=== PATIENT | female | born 1965 | race Caucasian/White ===

== ENCOUNTER → 2017-01-13 | Outpatient (CLI) | payer OTHER ==
--- NOTE | 2017-01-15 11:12 | MM ---
Reason for exam: screening (asymptomatic). Last mammogram was performed 1 year and 3 months ago. History: Patient is postmenopausal. Family history of premenopausal breast cancer in mother at age 53 and premenopausal breast cancer in sister at age 30. Physical Findings: A clinical breast exam by your physician is recommended on an annual basis and results should be correlated with mammographic findings. MG 3D Screening Mammo W/Cad Bilateral CC and MLO view(s) were taken. Prior study comparison: October 15, 2015, bilateral MG 3d screening mammo w/cad. March 26, 2015, left breast MG 3d diag mammo w/cad LT. September 18, 2014, left breast MG work up mamm w CAD LT. May 30, 2013, bilateral digital screening mammo w/CAD. The breast tissue is heterogeneously dense. This may lower the sensitivity of mammography. No significant changes when compared with prior studies. ASSESSMENT: Negative, BI-RAD 1 RECOMMENDATION: Routine screening mammogram of both breasts in 1 year.
== END | disposition home or self-care (01) ==
LOC: RADMAMWWP 08:28
PROVIDERS: ATTEND Obstetrics & Gynecology Obstetrics
DX: Z12.31 Encounter for screening mammogram for malignant neoplasm of breast (principal)
CPT/HCPCS: 77063; G0202

== ENCOUNTER 2017-08-23 10:34 | Observation (INO) | payer OTHER ==
[2017-08-23] MEDS ORDERED: RX INFO: IV CONTRAST WAS GIVEN 1 EACH MISC MISCELLANE PRN (12:25)
[2017-08-23] MEDS ORDERED: ASPIRIN 81 MG PO STA (12:31)
--- NOTE | 2017-08-23 12:40 | ED ---
Dizziness HPI - General Chief Complaint: Dizziness Stated Complaint: normal ekg, dizziness Time Seen by Provider: 08/23/17 12:05 Source: patient, RN notes reviewed Mode of arrival: wheelchair Limitations: no limitations - History of Present Illness Initial Comments: This a 51-year-old female presents with chief complaint of chest pressure , dizziness. Patient states she started last night she had some chest pressure" feeling as reflux. She went to urgent care today because she felt some back pain. Patient was sent here for further evaluation. She has a benign past HISTORY no history of hypertension, hyperlipidemia, diabetes or coronary disease. Patient's additional family history of heart disease. Patient states that she has not taken any medications for her symptoms. Patient states that she felt dizzy as room spinning. That has Resolved. Denies any nausea vomiting diarrheano focal weakness. Denies any headache. - Related Data Home Medications Medication Instructions Recorded Confirmed Hydrocortisone Cream 1 applic TOPICAL BID PRN 08/23/17 08/23/17 [Hydrocortisone 2.5% Cream] Naproxen Sodium [Aleve] 220 mg PO BID PRN 08/23/17 08/23/17 Triamcinolone 0.1% Cream [Kenalog] 1 applicatio TOPICAL BID PRN 08/23/17 Allergies Allergy/AdvReac Type Severity Reaction Status Date / Time No Known Allergies Allergy Verified 08/23/17 12:10 Review of Systems ROS Statement: Those systems with pertinent positive or pertinent negative responses have been documented in the HPI. ROS Other: All systems not noted in ROS Statement are negative. Past Medical History Past Medical History: No Reported History Additional Past Medical History / Comment(s): HX OF DIVERTICULITIS History of Any Multi-Drug Resistant Organisms: None Reported Past Surgical History: Section, Tubal Ligation Past Anesthesia/Blood Transfusion Reactions: No Reported Reaction Past Psychological History: No Psychological Hx Reported Smoking Status: Former smoker Past Alcohol Use History: Occasional Past Drug Use History: None Reported - Past Family History Sister(s) Family Medical History: Cancer Mother Family Medical History: Cancer, Myocardial Infarction ([place]) Additional Family Medical History / Comment(s): sister had cancer also Father Family Medical History: Cancer General Exam Limitations: no limitations General appearance: alert, in no apparent distress Head exam: Present: atraumatic, normocephalic, normal inspection Neck exam: Present: normal inspection. Absent: tenderness, meningismus, lymphadenopathy Respiratory exam: Present: normal lung sounds bilaterally. Absent: respiratory distress, wheezes, rales, rhonchi, stridor Cardiovascular Exam: Present: regular rate, normal rhythm, normal heart sounds. Absent: systolic murmur, diastolic murmur, rubs, gallop, clicks GI/Abdominal exam: Present: soft, normal bowel sounds. Absent: distended, tenderness, guarding, rebound, rigid Back exam: Absent: CVA tenderness (R), CVA tenderness (L) Skin exam: Present: warm, dry, intact, normal color. Absent: rash Course Vital Signs 08/23/17 08/23/17 08/23/17 10:42 12:22 13:20 Temperature 98.1 F Pulse Rate 70 68 72 Respiratory 20 18 18 Rate Blood Pressure 178/75 173/75 129/68 O2 Sat by Pulse 96 96 96 Oximetry EKG Findings - EKG Comments: EKG Findings:: EKG performed at 1052 normal sinus rhythm with a rate of 65 ND 186 QRS 78 QT/QTC 430/447 Medical Decision Making - Medical Decision Making 51-year-old female presented for chest pain. Patient lab work, EKG, chest x- ray and CT were reviewed. Patient will be admitted at this time for rule out cardiac, patient was started on low-dose ( - Lab Data Result diagrams: 08/23/17 12:27 08/23/17 12:27 Lab Results 08/23/17 08/23/17 08/23/17 Range/Units 12:27 12:27 12:27 WBC 6.8 (3.8-10.6) k/uL RBC 5.10 (3.80-5.40) m/uL Hgb 14.6 (11.4-16.0) gm/dL Hct 42.6 (34.0-46.0) % MCV 83.6 (80.0-100.0) fL MCH 28.7 (25.0-35.0) pg MCHC 34.3 (31.0-37.0) g/dL RDW 13.9 (11.5-15.5) % Plt Count 225 (150-450) k/uL Neutrophils % 67 % Lymphocytes % 26 % Monocytes % 4 % Eosinophils % 2 % Basophils % 1 % Neutrophils # 4.6 (1.3-7.7) k/uL Lymphocytes # 1.7 (1.0-4.8) k/uL Monocytes # 0.3 (0-1.0) k/uL Eosinophils # 0.1 (0-0.7) k/uL Basophils # 0.0 (0-0.2) k/uL PT (9.0-12.0) sec INR (<1.2) APTT (22.0-30.0) sec Sodium 143 (137-145) mmol/L Potassium 4.1 (3.5-5.1) mmol/L Chloride 103 (98-107) mmol/L Carbon Dioxide 25 (22-30) mmol/L Anion Gap 15 mmol/L BUN 12 (7-17) mg/dL Creatinine 0.55 (0.52-1.04) mg/dL Est GFR (CKD-EPI)AfAm >90 (>60 ml/min/1.73 sqM) Est GFR (CKD-EPI)NonAf >90 (>60 ml/min/1.73 sqM) Glucose 90 (74-99) mg/dL Calcium 9.8 (8.4-10.2) mg/dL Total Bilirubin 0.5 (0.2-1.3) mg/dL AST 28 (14-36) U/L ALT 49 (9-52) U/L Alkaline Phosphatase 94 (38-126) U/L Total Creatine Kinase 58 (30-135) U/L CK-MB (CK-2) 0.7 (0.0-2.4) ng/mL CK-MB (CK-2) Rel Index 1.2 Troponin I <0.012 (0.000-0.034) ng/mL Total Protein 8.0 (6.3-8.2) g/dL Albumin 4.8 (3.5-5.0) g/dL Lipase 53 (23-300) U/L 08/23/17 Range/Units 12:27 WBC (3.8-10.6) k/uL RBC (3.80-5.40) m/uL Hgb (11.4-16.0) gm/dL Hct (34.0-46.0) % MCV (80.0-100.0) fL MCH (25.0-35.0) pg MCHC (31.0-37.0) g/dL RDW (11.5-15.5) % Plt Count (150-450) k/uL Neutrophils % % Lymphocytes % % Monocytes % % Eosinophils % % Basophils % % Neutrophils # (1.3-7.7) k/uL Lymphocytes # (1.0-4.8) k/uL Monocytes # (0-1.0) k/uL Eosinophils # (0-0.7) k/uL Basophils # (0-0.2) k/uL PT 9.8 (9.0-12.0) sec INR 1.0 (<1.2) APTT 25.9 (22.0-30.0) sec Sodium (137-145) mmol/L Potassium (3.5-5.1) mmol/L Chloride (98-107) mmol/L Carbon Dioxide (22-30) mmol/L Anion Gap mmol/L BUN (7-17) mg/dL Creatinine (0.52-1.04) mg/dL Est GFR (CKD-EPI)AfAm (>60 ml/min/1.73 sqM) Est GFR (CKD-EPI)NonAf (>60 ml/min/1.73 sqM) Glucose (74-99) mg/dL Calcium (8.4-10.2) mg/dL Total Bilirubin (0.2-1.3) mg/dL AST (14-36) U/L ALT (9-52) U/L Alkaline Phosphatase (38-126) U/L Total Creatine Kinase (30-135) U/L CK-MB (CK-2) (0.0-2.4) ng/mL CK-MB (CK-2) Rel Index Troponin I (0.000-0.034) ng/mL Total Protein (6.3-8.2) g/dL Albumin (3.5-5.0) g/dL Lipase (23-300) U/L Disposition Clinical Impression: Chest pain Disposition: ADMITTED IP TO THIS HOSP Condition: Stable Is patient prescribed a controlled substance at d/c from ED?: No Referrals: Hernan Ge MD [Primary Care Provider] - 1-2 days
[2017-08-23 12:46] LABS: Basophils % (A) 1 %; Eosinophils # (A) 0.1 k/uL (0-0.7); Eosinophils % (A) 2 %; HCT 42.6 % (34.0-46.0); HGB 14.6 gm/dL (11.4-16.0); Lymphocytes # (A) 1.7 k/uL (1.0-4.8); Lymphocytes % (A) 26 %; MCH 28.7 pg (25.0-35.0); MCHC 34.3 g/dL (31.0-37.0); MCV 83.6 fL (80.0-100.0); Mean Platelet Volume 7.7; Monocytes # (A) 0.3 k/uL (0-1.0); Monocytes % (A) 4 %; Neutrophils # (A) 4.6 k/uL (1.3-7.7); Neutrophils % (A) 67 %; Platelet Count 225 k/uL (150-450); RDW 13.9 % (11.5-15.5); WBC 6.8 k/uL (3.8-10.6)
[2017-08-23 12:59] LABS: Partial Thromboplastin Time 25.9 sec (22.0-30.0); Prothrombin Time 9.8 sec (9.0-12.0)
[2017-08-23 13:02] LABS: ALT 49 U/L (9-52); AST 28 U/L (14-36); Albumin 4.8 g/dL (3.5-5.0); Alkaline Phosphatase 94 U/L (38-126); Anion Gap 15 mmol/L; Blood Urea Nitrogen 12 mg/dL (7-17); Calcium 9.8 mg/dL (8.4-10.2); Carbon Dioxide 25 mmol/L (22-30); Chloride 103 mmol/L (98-107); Glucose 90 mg/dL (74-99); Lipase 53 U/L (23-300); Potassium 4.1 mmol/L (3.5-5.1); Sodium 143 mmol/L (137-145); Total Bilirubin 0.5 mg/dL (0.2-1.3)
[2017-08-23 13:08] LABS: Creatine Kinase 58 U/L (30-135)
--- NOTE | 2017-08-23 13:17 | XR ---
EXAMINATION TYPE: XR chest 2V DATE OF EXAM: 08/23/2017 COMPARISON: NONE HISTORY: Shortness of breath TECHNIQUE: Frontal and lateral views of the chest are obtained. FINDINGS: Scattered senescent parenchymal changes noted. No evidence for infiltrate. No evidence for atelectasis. Mildly increased basilar markings are nonspe cific. Heart size is stable. Mediastinal structures are stable and grossly unremarkable. No evidence for hilar prominence. Degenerative changes dorsal spine. IMPRESSION: 1. No evidence for acute pulmonary disease.
[2017-08-23 13:21] LABS: Creatine Kinase MB 0.7 ng/mL (0.0-2.4); Troponin I <0.012 ng/mL (0.000-0.034)
--- NOTE | 2017-08-23 13:55 | CT ---
CT CHEST FOR PULMONARY EMBOLISM. EXAMINATION TYPE: CT chest angio for PE DATE OF EXAM: 08/23/2017 INDICATION: Shortness of breath and chest pain CT DLP: 572 mGycm, Automated exposure control for dose reduction was used. CONTRAST: Patient injected with 84 mL of Isovue 370. COMPARISON: NONE TECHNIQUE: CT of the chest is performed on a spiral scan at 2 mm thick sections. Study is performed with intravenous contrast timed for evaluation for pulmonary embolism. This will limit additional po rtions of the evaluation. 3-D MIP images reconstructed by the technologist are reviewed on the compu ter in the coronal and sagittal planes. FINDINGS: No persistent filling defects are evident to suggest an acute pulmonary embolism. No mediastinal or hilar adenopathy enlarged by CT criteria is evident. The ascending aorta diameter at the level of the main pulmonary artery is 3.6 cm. The main pulmonary artery diameter at the bifur cation is 2.6 cm. Lung windows are clear. Limited CT section through the upper abdomen are unremarkable. IMPRESSIONS: 1. No acute pulmonary embolism.
[2017-08-23] MEDS ORDERED: HEPARIN SODIUM,PORCINE 5,000 UNIT/ML 1 ML VIAL IV ONE (14:12)
[2017-08-23] MEDS ORDERED: NITROGLYCERIN SL TABS 0.4 MG TAB SUBLINGUAL PRN (14:12)
[2017-08-23] MEDS ORDERED: HEPARIN SOD,PORK IN 0.45% NACL 25,000 UNIT in 0.45% NACL 1 500ML.BAG IV SCH (14:15)
[2017-08-23] MEDS ORDERED: ACETAMINOPHEN TAB 325 MG TAB PO PRN (17:21)
[2017-08-23] MEDS ORDERED: ALPRAZolam 0.25 MG TAB PO PRN (17:21)
[2017-08-23] MEDS ORDERED: MAGNESIUM HYDROXIDE 2,400 MG/10 ML CUP PO PRN (17:21)
[2017-08-23] MEDS ORDERED: MELATONIN 3 MG TABLET PO PRN (17:21)
[2017-08-23] MEDS ORDERED: TRIAMCINOLONE 0.1% CREAM 80 GM TUBE TOPICAL PRN ×2 (17:21)
[2017-08-23] MEDS ORDERED: LACTULOSE 20 GM/30 ML CUP PO PRN (17:21)
[2017-08-23] MEDS ORDERED: ONDANSETRON 4 MG/2 ML VIAL IVP PRN (17:21)
[2017-08-23] MEDS ORDERED: NALOXONE 0.4 MG/ML 1 ML VIAL IV PRN (17:21)
[2017-08-23] MEDS ORDERED: CALCIUM CARBONATE 500 MG CHEWABLE PO PRN (17:21)
[2017-08-23 19:37] LABS: Creatine Kinase 49 U/L (30-135)
[2017-08-23 19:49] LABS: Creatine Kinase MB 0.6 ng/mL (0.0-2.4); Troponin I <0.012 ng/mL (0.000-0.034)
[2017-08-23 23:18] LABS: Creatine Kinase 45 U/L (30-135)
[2017-08-23] MEDS: HEPARIN SODIUM,PORCINE 5,000 UNIT/ML 1 ML VIAL IV PRN (23:18)
[2017-08-23 23:32] LABS: Creatine Kinase MB 0.5 ng/mL (0.0-2.4); Troponin I <0.012 ng/mL (0.000-0.034)
[2017-08-24 06:10] LABS: Cholesterol 166 mg/dL (<200); HDL Cholesterol 40 mg/dL (40-60); LDL Cholesterol,Calculated 88 mg/dL (0-99); Triglycerides 188 mg/dL (<150)
[2017-08-24] MEDS: HEPARIN SODIUM,PORCINE 5,000 UNIT/ML 1 ML VIAL IV PRN (06:17)
[2017-08-24 08:56] VITALS: RESP 18
[2017-08-24] MEDS ORDERED: ASPIRIN 325 MG TAB PO SCH (09:00)
--- NOTE | 2017-08-24 10:58 | ECHOF ---
Referral Reason:cp MEASUREMENTS -------- HEIGHT: 165.1 cm WEIGHT: 88.0 kg BP: 128/60 RVIDd: 3.1 cm (< 3.3) IVSd: 1.2 cm (0.6 - 1.1) LVIDd: 4.1 cm (3.9 - 5.3) LVPWd: 1.1 cm (0.6 - 1.1) IVSs: 1.4 cm LVIDs: 2.7 cm LVPWs: 1.7 cm LA Diam: 3.0 cm (2.7 - 3.8) LAESV Index (A-L): 16.87 ml/m Ao Diam: 2.9 cm (2.0 - 3.7) AV Cusp: 2.0 cm (1.5 - 2.6) MV EXCURSION: 11.714 mm (> 18.000) MV EF SLOPE: 86 mm/s (70 - 150) EPSS: 0.4 cm MV E Lars: 0.88 m/s MV DecT: 296 ms MV A Lars: 0.90 m/s MV E/A Ratio: 0.98 FINDINGS -------- Sinus rhythm. This was a technically good study. The left ventricular size is normal. There is borderline concentric left ventricular hypertrophy. Overall left ventricular systolic function is normal with, an EF between 60 - 65 %. The right ventricle is normal in size. Normal LA size by volume 22+/-6 ml/m2. The right atrium is normal in size. The aortic valve is trileaflet and appears structurally normal. The mitral valve is normal. The tricuspid valve appears structurally normal. There is no pulmonic regurgitation present. The aortic root size is normal. Normal inferior vena cava with normal inspiratory collapse consistent with estimated right atrial pre ssure of 5 mmHg. There is no pericardial effusion. CONCLUSIONS -------- 1. Sinus rhythm. 2. This was a technically good study. 3. The left ventricular size is normal. 4. There is borderline concentric left ventricular hypertrophy. 5. Overall left ventricular systolic function is normal with, an EF between 60 - 65 %. 6. The right ventricle is normal in size. 7. Normal LA size by volume 22+/-6 ml/m2. 8. The right atrium is normal in size. 9. The aortic valve is trileaflet and appears structurally normal. 10. The mitral valve is normal. 11. The tricuspid valve appears structurally normal. 12. There is no pulmonic regurgitation present. 13. The aortic root size is normal. 14. Normal inferior vena cava with normal inspiratory collapse consistent with estimated right atrial pressure of 5 mmHg. 15. There is no pericardial effusion. D[employer] GRINDER: Leah Mosquera RDCS
--- NOTE | 2017-08-24 11:32 | ECHOS ---
STRESS ECHOCARDIOGRAM INDICATION: Chest pain. BASELINE HEART RATE: 82 BASELINE BLOOD PRESSURE: 122/65 MAXIMUM HEART RATE: 148 MAXIMUM BLOOD PRESSURE: 199/64 85% MPHR: 142 100% MPHR: 167 METS: 10.5 MAXIMUM STAGE REACHED: III TOTAL EXERCISE TIME: 9:00 CLINICAL INFORMATION: Baseline EKG shows sinus rhythm, normal axis, normal intervals. Patient exercised on Jp protocol for a total of 9 minutes achieving 10 METS, 89% of predicted maximal heart rate without chest pain or diagnostic ST-segment depression. Baseline echo shows normal left ventricular size, wall motion and systolic function. Postexercise there is normal hyperdynamic response of all segments of myocardium noted. CONCLUSIONS: 1. Good exercise tolerance. 2. Negative stress test by EKG criteria. 3. Negative stress echo. MMODL / IJN: [id number] /
[2017-08-24 12:04] VITALS: BP 122/74; PULSE 85; TEMP 98.1
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
[2017-08-24 13:56] VITALS: BMI 32.3
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
== END 2017-08-24 13:54 | disposition home or self-care (01) ==
LOC: EC 10:34 → 3OBS 14:19
PROVIDERS: ADMIT Hospitalist; ATTEND Hospitalist
DX: R42 Dizziness and giddiness (principal); K21.9 Gastro-esophageal reflux disease without esophagitis; R03.0 Elevated blood-pressure reading, without diagnosis of hypertension; L30.9 Dermatitis, unspecified; K57.90 Diverticulosis of intestine, part unspecified, without perforation or abscess without bleeding; E66.9 Obesity, unspecified; Z68.32 Body mass index [BMI] 32.0-32.9, adult; Z87.891 Personal history of nicotine dependence; Z82.49 Family history of ischemic heart disease and other diseases of the circulatory system; Z80.8 Family history of malignant neoplasm of other organs or systems
CPT/HCPCS: 99285 ×2; 96365 ×2; 96366 ×7; 96376 ×4; 36415; 93005; 93306; 93351; 80061; 80053; 82550; 82553; 83690; 84484; 85025; 85610; 85730 ×2; 71046; 71275; G0378 ×2; J1644 ×3; Q9967

== ENCOUNTER → 2018-02-08 | Outpatient (CLI) | payer OTHER ==
--- NOTE | 2018-02-11 10:08 | MM ---
Reason for exam: screening (asymptomatic). Last mammogram was performed 1 year and 1 month ago. History: Patient is postmenopausal. Family history of premenopausal breast cancer in mother at age 53 and premenopausal breast cancer in sister at age 30. Physical Findings: A clinical breast exam by your physician is recommended on an annual basis and results should be correlated with mammographic findings. MG 3D Screening Mammo W/Cad Bilateral CC and MLO view(s) were taken. Prior study comparison: January 13, 2017, bilateral MG 3d screening mammo w/cad. October 15, 2015, bilateral MG 3d screening mammo w/cad. The breast tissue is heterogeneously dense. This may lower the sensitivity of mammography. No significant changes when compared with prior studies. ASSESSMENT: Benign, BI-RAD 2 RECOMMENDATION: Routine screening mammogram of both breasts in 1 year.
== END | disposition home or self-care (01) ==
LOC: RADMAMWWP 10:17
PROVIDERS: ATTEND Family Medicine
DX: Z12.31 Encounter for screening mammogram for malignant neoplasm of breast (principal)
CPT/HCPCS: 77063; 77067

== ENCOUNTER → 2019-02-21 | Outpatient (CLI) | payer BC ==
--- NOTE | 2019-02-25 08:03 | MM ---
Reason for exam: screening (asymptomatic). Last mammogram was performed 1 year ago. History: Patient is postmenopausal. Family history of premenopausal breast cancer in mother at age 53 and premenopausal breast cancer in sister at age 30. Physical Findings: A clinical breast exam by your physician is recommended on an annual basis and results should be correlated with mammographic findings. MG 3D Screening Mammo W/Cad Bilateral CC and MLO view(s) were taken. Prior study comparison: February 08, 2018, bilateral MG 3d screening mammo w/cad. January 13, 2017, bilateral MG 3d screening mammo w/cad. The breast tissue is heterogeneously dense. This may lower the sensitivity of mammography. There is chronic nodularity in the left breast medially and anterior. No significant changes when compared with prior studies. ASSESSMENT: Negative, BI-RAD 1 RECOMMENDATION: Routine screening mammogram of both breasts in 1 year.
== END | disposition home or self-care (01) ==
LOC: RADMAMWWP 16:29
PROVIDERS: ATTEND Family Medicine
DX: Z12.31 Encounter for screening mammogram for malignant neoplasm of breast (principal)
CPT/HCPCS: 77063; 77067

== ENCOUNTER → 2020-02-27 | Outpatient (CLI) | payer BC ==
--- NOTE | 2020-03-02 08:15 | MM ---
Reason for exam: screening (asymptomatic). Last mammogram was performed 1 year ago. History: Patient is postmenopausal. Family history of premenopausal breast cancer in mother at age 53 and premenopausal breast cancer in sister at age 30. Physical Findings: A clinical breast exam by your physician is recommended on an annual basis and results should be correlated with mammographic findings. MG 3D Screening Mammo W/Cad Bilateral CC and MLO view(s) were taken. Prior study comparison: February 21, 2019, bilateral MG 3d screening mammo w/cad. February 08, 2018, bilateral MG 3d screening mammo w/cad. The breast tissue is heterogeneously dense. This may lower the sensitivity of mammography. No significant changes when compared with prior studies. ASSESSMENT: Negative, BI-RAD 1 RECOMMENDATION: Routine screening mammogram of both breasts in 1 year.
== END | disposition home or self-care (01) ==
LOC: RADMAMWWP 15:39
PROVIDERS: ATTEND Family Medicine
DX: Z12.31 Encounter for screening mammogram for malignant neoplasm of breast (principal)
CPT/HCPCS: 77063; 77067

== ENCOUNTER → 2021-04-26 | Outpatient (CLI) | payer BC ==
--- NOTE | 2021-05-02 11:30 | MM ---
Reason for exam: screening (asymptomatic). Last mammogram was performed 1 year and 2 months ago. History: Patient is postmenopausal. Family history of premenopausal breast cancer in mother at age 53 and premenopausal breast cancer in sister at age 30. Physical Findings: A clinical breast exam by your physician is recommended on an annual basis and results should be correlated with mammographic findings. MG 3D Screening Mammo W/Cad Bilateral CC and MLO view(s) were taken. Prior study comparison: February 27, 2020, bilateral MG 3d screening mammo w/cad. February 21, 2019, bilateral MG 3d screening mammo w/cad. The breast tissue is heterogeneously dense. This may lower the sensitivity of mammography. A couple punctate calcifications, possibly more have developed in the medial right CC view but not identified on the MLO view. 6 month follow up recommended. ASSESSMENT: Probably benign, BI-RAD 3 RECOMMENDATION: Follow-up diagnostic mammogram of the right breast in 6 months.
== END | disposition home or self-care (01) ==
LOC: RADMAMWWP 15:56
PROVIDERS: ATTEND Family Medicine
DX: Z12.31 Encounter for screening mammogram for malignant neoplasm of breast (principal); Z80.3 Family history of malignant neoplasm of breast; Z78.0 Asymptomatic menopausal state
CPT/HCPCS: 77063; 77067

== ENCOUNTER → 2021-08-31 | Outpatient (CLI) | payer BC ==
[2021-09-01 01:08] LABS: Basophils # (A) 0.07 X 10*3/uL (0.00-0.10); Basophils % (A) 0.9 %; Eosinophils # (A) 0.13 X 10*3/uL (0.04-0.35); Eosinophils % (A) 1.7 %; HCT 43.2 % (37.2-46.3); HGB 13.9 g/dL (12.0-15.0); Immature Grans, Automated 0.1 %; Lymphocytes # (A) 2.44 X 10*3/uL (0.90-5.00); Lymphocytes % (A) 31.5 %; MCHC 32.2 g/dL (32.0-37.0); MCV 87.1 fL (80.0-97.0); Mean Platelet Volume 11.6 fL (9.5-12.2); Monocytes # (A) 0.62 X 10*3/uL (0.20-1.00); NRBC Per 100 WBC 0 /100 WBCS (0.0-0.0); Neutrophils # (A) 4.47 X 10*3/uL (1.80-7.70); Neutrophils % (A) 57.8 %; Platelet Count 246 X 10*3/uL (140-440); RBC 4.96 X 10*6/uL (4.10-5.20); RDW 13.2 % (11.5-14.5); WBC 7.74 X 10*3/uL (4.50-10.00)
== END | disposition home or self-care (01) ==
LOC: LABPAT 15:32
PROVIDERS: ATTEND Obstetrics & Gynecology Obstetrics
DX: Z01.812 Encounter for preprocedural laboratory examination (principal); R93.89 Abnormal findings on diagnostic imaging of other specified body structures
CPT/HCPCS: 36415; 85025

== ENCOUNTER 2021-09-05 07:43 | Day surgery (SDC) | payer BC ==
[2021-09-01 16:19] VITALS: BMI 34.1
[~2021-09-05 07:43] MED LIST: DEXAMETHASONE SOD PHOSPHATE 4 MG/ML 1 ML VIAL IV ONE; HYDROmorphone 0.5 MG/0.5 ML SYRINGE IVP PRN; LACTATED RINGERS 1,000 ML IV SCH; LIDOCAINE 1% (10MG/ML) FOR IV START INTRADERMA PRN; MIDAZOLAM 2 MG/2 ML VIAL IV PRN; ONDANSETRON 4 MG/2 ML VIAL IVP ONE; Pre Op ABX Message 1 EACH MISC MISCELLANE ONE
[2021-09-05 08:10] VITALS: RESP 16; TEMP 97
[2021-09-05] MEDS ORDERED: PROPOFOL 10 MG/ML 20 ML VIAL IV ONE (09:24)
[2021-09-05] MEDS ORDERED: MIDAZOLAM 2 MG/2 ML VIAL ONE (09:24)
[2021-09-05] MEDS ORDERED: fentaNYL (PF) 50 MCG/ML 2 ML AMP ONE (09:24)
[2021-09-05] MEDS ORDERED: KETOROLAC 15 MG/ML 1 ML VIAL ONE (09:24)
--- NOTE | 2021-09-05 10:07 | P.OP ---
Date of Procedure: 09/05/21 Preoperative Diagnosis: Thickened endometrium Postoperative Diagnosis: Same Procedure(s) Performed: Hysteroscopy, dilation and curettage Anesthesia: MAC Surgeon: Chantal Pizano Estimated Blood Loss (ml): 5 IV fluids (ml): 400 Urine output (ml): 100 Pathology: other (Endometrial curettings) Condition: stable Disposition: PACU Indications for Procedure: Thickened endometrium noted on ultrasound Operative Findings: Cervical polyp appreciated normal-appearing atrophic endometrium Description of Procedure: Patient was taken back to the operative suite where general anesthesia was obtained without difficulty by the anesthesia department. Patient was then prepped and draped in normal sterile fashion in the dorsal lithotomy position. Red rubber catheter is used to drain the bladder clear yellow urine. A weighted speculum posterior vaginal vault the anterior lip of the cervix was then grasped with a single-tooth tenaculum. The endocervical canal was then dilated serial ly. The hysteroscope was placed through the cervix and toward the endometrial cavity, an intact cavity was appreciated a cervical polyp was noted otherwise normal appearing endometrial cavity. Upon dilation of the Pap was made but no perforation was appreciated. Pictures were taken. Hysteroscope was removed without difficulty. A gentle sharp curettage was then performed minimal tissue was appreciated. This was expected given gross visualization of the endometrial cavity. Specimen was sent to pathology for analysis. The single-tooth tenaculum was taken off of the anterior lip of the cervix. Hemostasis was appreciated. All counts were noted to be correct 2 at the end of the procedure. Patient did tolerate procedure well and was taken the recovery room awake in stable condition.
[2021-09-05 10:41] VITALS: BP 131/70; PULSE 75
== END 2021-09-05 10:41 | disposition home or self-care (01) ==
LOC: OR 07:43
PROVIDERS: ATTEND Obstetrics & Gynecology Obstetrics
DX: N85.00 Endometrial hyperplasia, unspecified (principal); M19.90 Unspecified osteoarthritis, unspecified site
CPT/HCPCS: 58558; 88305; J2250; J1100; J2405; J3010; J1885; J2704

== ENCOUNTER → 2021-10-31 | Outpatient (CLI) | payer BC ==
--- NOTE | 2021-10-31 15:46 | MM ---
Reason for Exam: Follow-up at short interval from prior study. Last screening mammogram was performed 6 month(s) ago. Patient History: Menarche at age 7. First Full-Term at age 18. Postmenopausal. Sister had breast cancer, age 30. Mother had breast cancer, age 53. Risk Values: Bekah 5 year model risk: 5.7%. NCI Lifetime model risk: 30.6%. Prior Study Comparison: 02/21/2019 Bilateral Screening Mammogram, [facility]. 02/27/2020 Bilateral Screening Mammogram, [facility]. 04/26/2021 Bilateral Screening Mammogram, [facility]. Tissue Density: Right: The breast tissue is heterogeneously dense. This may lower the sensitivity of mammography. Findings: Analyzed By CAD. Focal asymmetry is in the upper outer aspect right breast is stable. Couple of punctate calcifications within the medial right breast are stable. No suspicious cluster microcalcifications. Overall Assessment: Benign, BI-RAD 2 Management: Screening Mammogram of both breasts in 6 months. A clinical breast exam by your physician is recommended on an annual basis and results should be correlated with mammographic findings. This exam should not preclude additional follow-up of suspicious palpable abnormalities. Results were given to the patient verbally at the time of exam. Electronically signed and approved by: Travis Barnes D.O. Radiologis
== END | disposition home or self-care (01) ==
LOC: RADMAMWWP 14:58
PROVIDERS: ATTEND Family Medicine
DX: R92.1 Mammographic calcification found on diagnostic imaging of breast (principal); Z78.0 Asymptomatic menopausal state; Z80.3 Family history of malignant neoplasm of breast
CPT/HCPCS: 77061; 77065

== ENCOUNTER → 2022-05-23 | Outpatient (CLI) | payer BC ==
--- NOTE | 2022-05-24 22:08 | MM ---
Reason for Exam: Screening (asymptomatic). Last mammogram was performed 1 year(s) and 1 month(s) ago. Patient History: Menarche at age 7. First Full-Term at age 18. Postmenopausal. Patient has history of breast feeding. Sister had breast cancer, age 30. Mother had breast cancer, age 53. Sister had breast cancer, age 18. Sister had breast cancer, age 64. Risk Values: Bekah 5 year model risk: 5.9%. NCI Lifetime model risk: 30.0%. Prior Study Comparison: 02/27/2020 Bilateral Screening Mammogram, [facility]. 04/26/2021 Bilateral Screening Mammogram, [facility]. 10/31/2021 Right MG 3D diag mammo w/cad RT, [facility]. Tissue Density: The breast tissue is heterogeneously dense. This may lower the sensitivity of mammography. Findings: Analyzed By CAD. Images global asymmetry lateral right CC view. Area of asymmetric density lateral left CC view middle depth appears more defined on both 2-D and 3-D imaging. This may represent superimposition shadow but further evaluation is recommended. No clear correlate on the MLO view. Overall Assessment: Incomplete: need additional imaging evaluation, BI-RAD 0 Management: Special View Mammogram of the left breast. Diagnostic Breast Ultrasound of the left breast. Additional views including spot 3-D CC, 3-D CC rolled medial, and 3-D ML views. Targeted ultrasound lateral half of the left breast. Note the patient's increased five-year and lifetime risk for the development of breast cancer. Patient may qualify for screening MRI. [facility] will attempt to contact patient to return for supplemental views and ultrasound if indicated. Electronically signed and approved by: Jose Gonzalez M.D. Radiologist
== END | disposition home or self-care (01) ==
LOC: RADMAMWWP 16:38
PROVIDERS: ATTEND Family Medicine
DX: Z12.31 Encounter for screening mammogram for malignant neoplasm of breast (principal); Z78.0 Asymptomatic menopausal state; Z80.3 Family history of malignant neoplasm of breast
CPT/HCPCS: 77063; 77067

== ENCOUNTER → 2022-05-30 | Outpatient (CLI) | payer BC ==
--- NOTE | 2022-05-30 15:31 | MM ---
Reason for Exam: Additional evaluation requested from abnormal screening. Last screening mammogram was performed less than 1 month ago. Patient History: Menarche at age 7. First Full-Term at age 18. Postmenopausal. Patient has history of breast feeding. Sister had breast cancer, age 30. Mother had breast cancer, age 53. Sister had breast cancer, age 18. Sister had breast cancer, age 64. Risk Values: Bekah 5 year model risk: 5.9%. NCI Lifetime model risk: 30.0%. Prior Study Comparison: 04/26/2021 Bilateral Screening Mammogram, [facility]. 10/31/2021 Right MG 3D diag mammo w/cad RT, [facility]. 05/23/2022 Bilateral MG 3D screening mammo w/cad, [facility]. Tissue Density: Left: The breast tissue is heterogeneously dense. This may lower the sensitivity of mammography. Findings: Analyzed By CAD. Asymmetric density laterally becomes much less defined and appears to disperse on spot 3-D view. Given patient's high risk for the development of breast cancer, further ultrasound evaluation recommended. Overall Assessment: Incomplete: need additional imaging evaluation, BI-RAD 0 Management: Diagnostic Breast Ultrasound of the left breast. Upper outer quadrant. Electronically signed and approved by: Jose Gonzalez M.D. Radiologist
--- NOTE | 2022-05-30 15:44 | USB ---
Reason for Exam: Additional evaluation requested from abnormal screening. Patient History: Menarche at age 7. First Full-Term at age 18. Postmenopausal. Patient has history of breast feeding. Sister had breast cancer, age 30. Mother had breast cancer, age 53. Sister had breast cancer, age 18. Sister had breast cancer, age 64. Risk Values: Bekah 5 year model risk: 5.9%. NCI Lifetime model risk: 30.0%. Technique: Method: Targeted. Prior Study Comparison: 04/26/2021 Bilateral Screening Mammogram, [facility]. 10/31/2021 Right MG 3D diag mammo w/cad RT, [facility]. 05/23/2022 Bilateral MG 3D screening mammo w/cad, [facility]. Findings: The lateral section of the breast of the left breast, the axilla of the left breast and the retroareolar of the left breast were scanned. Targeted ultrasound lateral half 12:00 to 6:00 including the subareolar region and axilla. No solid or cystic lesion or axillar lymphadenopathy is seen.. Overall Assessment: Benign, BI-RAD 2 Management: Screening Mammogram of both breasts in 1 year. 1. Note the patient's very high Bekah score and overall lifetime risk for the development of breast cancer. Consider specialist referral to assess eligibility for a risk reducing agent. In addition, the patient may qualify for future screening with alternating mammogram and breast MRI. 2. Patient should continue monthly self breast exams. A clinical breast exam by your physician is recommended on an annual basis. 3. This exam should not preclude additional follow-up of suspicious palpable abnormalities Results were given to the patient verbally at the time of exam. Electronically signed and approved by: Jose Gonzalez M.D. Radiologist
== END | disposition home or self-care (01) ==
LOC: RADMAMWWP 14:59
PROVIDERS: ATTEND Family Medicine
DX: R92.8 Other abnormal and inconclusive findings on diagnostic imaging of breast (principal); Z78.0 Asymptomatic menopausal state; Z80.3 Family history of malignant neoplasm of breast
CPT/HCPCS: 77061; 77065

== ENCOUNTER → 2023-06-06 | Outpatient (CLI) | payer BC ==
--- NOTE | 2023-06-07 08:26 | MM ---
Reason for Exam: Screening (asymptomatic). Last screening mammogram was performed 12 month(s) ago. Patient History: Menarche at age 7. First Full-Term at age 18. Postmenopausal. Patient has history of breast feeding. Sister had breast cancer, age 30. Mother had breast cancer, age 53. Sister had breast cancer, age 18. Sister had breast cancer, age 64. Risk Values: Bekah 5 year model risk: 6.2%. NCI Lifetime model risk: 29.4%. Prior Study Comparison: 10/31/2021 Right MG 3D diag mammo w/cad RT, [facility]. 05/23/2022 Bilateral MG 3D screening mammo w/cad, [facility]. 05/30/2022 Left MG 3D work up w/cad LT, [facility]. Tissue Density: The breast tissue is heterogeneously dense. This may lower the sensitivity of mammography. Findings: Analyzed By CAD. There is no suspicious group of microcalcifications or new suspicious mass. Overall Assessment: Negative, BI-RAD 1 Management: Screening Mammogram of both breasts in [address] [facility] will attempt to contact patient to return for supplemental views and ultrasound if indicated. Patient should continue monthly self-breast exams. A clinical breast exam by your physician is recommended on an annual basis. This exam should not preclude additional follow-up of suspicious palpable abnormalities. Note on Bekah scores and lifetime risk: 1. A Bekah score greater than 3% is considered moderate risk. If this is the case, consider specialist referral to assess eligibility for a risk reducing agent. 2. If overall lifetime risk for the development of breast cancer is 20% or higher, the patient may qualify for future screening with alternating mammogram and breast MRI. Electronically signed and approved by: Garrett Spence DO
== END | disposition home or self-care (01) ==
LOC: RADMAMWWP 16:31
PROVIDERS: ATTEND Family Medicine
DX: Z12.31 Encounter for screening mammogram for malignant neoplasm of breast (principal); Z80.3 Family history of malignant neoplasm of breast; Z78.0 Asymptomatic menopausal state
CPT/HCPCS: 77063; 77067

== ENCOUNTER → 2023-07-18 | Outpatient (CLI) | payer BC ==
[2023-07-19 02:09] LABS: HCT 41.2 % (37.2-46.3); HGB 13.8 g/dL (12.0-15.0); MCH 28.6 pg (27.0-32.0); MCHC 33.5 g/dL (32.0-37.0); MCV 85.3 FL (80.0-97.0); Mean Platelet Volume 10.9 FL (9.5-12.2); NRBC Per 100 WBC 0 X 10*3/uL (0.00-0.01); Platelet Count 242 X 10*3/uL (140-440); RBC 4.83 X 10*6/uL (4.10-5.20); RDW 13.3 % (11.5-14.5); WBC 6.87 X 10*3/uL (4.50-10.00)
[2023-07-19 02:10] LABS: Basophils # (A) 0.05 X 10*3/uL (0.00-0.10); Basophils % (A) 0.7 %; Eosinophils # (A) 0.12 X 10*3/uL (0.04-0.35); Eosinophils % (A) 1.7 %; Lymphocytes # (A) 2.27 X 10*3/uL (0.90-5.00); Monocytes # (A) 0.46 X 10*3/uL (0.20-1.00); Monocytes % (A) 6.7 %; Neutrophils # (A) 3.96 X 10*3/uL (1.80-7.70); Neutrophils % (A) 57.8 %
== END | disposition home or self-care (01) ==
LOC: LABPAT 16:25
PROVIDERS: ATTEND Obstetrics & Gynecology Obstetrics
DX: Z01.812 Encounter for preprocedural laboratory examination (principal); R93.89 Abnormal findings on diagnostic imaging of other specified body structures
CPT/HCPCS: 36415; 85025

== ENCOUNTER 2023-08-10 06:10 | Day surgery (SDC) | payer BC ==
[2023-08-07 11:24] VITALS: BMI 33.1
[~2023-08-10 06:10] MED LIST changes: -DEXAMETHASONE SOD PHOSPHATE 4 MG/ML 1 ML VIAL IV ONE; -HYDROmorphone 0.5 MG/0.5 ML SYRINGE IVP PRN; -LACTATED RINGERS 1,000 ML IV SCH; -LIDOCAINE 1% (10MG/ML) FOR IV START INTRADERMA PRN; -MIDAZOLAM 2 MG/2 ML VIAL IV PRN; -ONDANSETRON 4 MG/2 ML VIAL IVP ONE
[2023-08-10] MEDS ORDERED: LIDOCAINE 1% (10MG/ML) FOR IV START INTRADERMA PRN (06:40)
[2023-08-10] MEDS ORDERED: droPERidol 5 MG/2 ML VIAL IVP ONE (06:40)
[2023-08-10] MEDS ORDERED: HYDROmorphone 0.5 MG/0.5 ML SYRINGE IVP PRN (06:40)
[2023-08-10] MEDS: LACTATED RINGERS 1,000 ML IV SCH (07:11)
[2023-08-10] MEDS: ONDANSETRON 4 MG/2 ML VIAL IVP ONE (07:11)
[2023-08-10] MEDS: DEXAMETHASONE SOD PHOSPHATE 4 MG/ML 1 ML VIAL IV ONE (07:11)
[2023-08-10] MEDS ORDERED: LIDOCAINE 1% INJ 10MG/ML (20 ML MDV) ONE (07:25)
[2023-08-10] MEDS ORDERED: MIDAZOLAM 2 MG/2 ML VIAL ONE (07:25)
[2023-08-10] MEDS ORDERED: fentaNYL (PF) 50 MCG/ML 2 ML AMP ONE (07:25)
[2023-08-10] MEDS ORDERED: KETOROLAC 15 MG/ML 1 ML VIAL ONE (07:25)
[2023-08-10] MEDS ORDERED: PROPOFOL 10 MG/ML 20 ML VIAL IV ONE (07:25)
--- NOTE | 2023-08-10 08:14 | P.OP ---
Date of Procedure: 08/10/23 Preoperative Diagnosis: Thickened endometrium Postoperative Diagnosis: Same Procedure(s) Performed: Hysteroscopy, dilation curettage Anesthesia: MAC Surgeon: Chantal Pizano Estimated Blood Loss (ml): 5 IV fluids (ml): 400 Urine output (ml): 150 Pathology: other (Scant endometrial curettings) Condition: stable Disposition: PACU Indications for Procedure: Thickened endometrium Operative Findings: Normal-appearing cavity Description of Procedure: Patient was taken back to the operating suite where general anesthesia was obtained without difficulty by the anesthesia department. She was prepped and draped in the normal sterile fashion in the dorsolithotomy position. A red rubber catheter was used to drain the bladder of clear yellow urine. A weighted speculum is placed in the posterior vaginal vault the antilipid the cervix was visualized and grasped with a single-tooth tenaculum. The endocervical canal was then easily serially dilated. Hysteroscope was placed through the cervix and toward the endometrial cavity an intact cavity was appreciated some scarring was noted otherwise normal for her menopausal state. Camera was removed a gentle sharp curettage was performed with scant tissue obtained this was sent to pathology for analysis. The single-tooth tenaculum was taken off of the antilipid the cervix. Hemostasis was appreciated. All counts were noted be correct x 2. Patient tolerated procedure well and was taken to the recovery room awake in stable condition.
[2023-08-10 08:36] VITALS: TEMP 97.6
[2023-08-10 09:24] LABS: Glucose,Whole Blood 99 mg/dL (70-110)
[2023-08-10 10:48] VITALS: BP 129/71; PULSE 63; RESP 16
== END 2023-08-10 10:15 | disposition home or self-care (01) ==
LOC: OR 06:10
PROVIDERS: ATTEND Obstetrics & Gynecology Obstetrics
DX: R93.89 Abnormal findings on diagnostic imaging of other specified body structures (principal); R10.2 Pelvic and perineal pain; Z78.0 Asymptomatic menopausal state; I10 Essential (primary) hypertension; Z87.891 Personal history of nicotine dependence; Z79.899 Other long term (current) drug therapy
CPT/HCPCS: 88305; 58558; J2250; J1100; J2405; J2001; J3010; J1885; J2704

== ENCOUNTER 2023-09-22 16:21 | Emergency (ER) | payer BC ==
[2023-09-22 16:51] VITALS: RESP 18
[2023-09-22] MEDS: DIPH,PERTUS(ACELL)TETVAC-LF 0.5 ML VIAL IM ONE (16:52)
[2023-09-22] MEDS: MORPHINE SULFATE 4 MG/ML SYRINGE IM STA (16:53)
[2023-09-22] MEDS: KETOROLAC 15 MG/ML 1 ML VIAL IM STA (16:55)
--- NOTE | 2023-09-22 17:23 | XR ---
EXAMINATION TYPE: XR hand complete RT DATE OF EXAM: 09/22/2023 5:10 PM CLINICAL INDICATION:Female, 57 years old with history of dog bite; COMPARISON: None TECHNIQUE: XR hand complete RT Frontal, lateral and oblique views were obtained. FINDINGS: Normal alignment of the visualized joints. No acute osseous pathology is identified. No e vidence of soft tissue swelling. Multifocal degeneration changes with joint space narrowing and osteo phyte formation. No radiopaque foreign body. IMPRESSION: 1. No acute osseous pathology. 2. No evidence for radiopaque foreign body.
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
[2023-09-22] MEDS: LIDOCAINE 1% INJ 10MG/ML (20 ML MDV) SQ ONE (17:49)
[2023-09-22] MEDS: AMOXIC-POT CLAV 875MG STARTER PACK 2 TAB BTL PO STA (18:30)
[2023-09-22 19:09] VITALS: BP 134/75; PULSE 71; TEMP 98
== END 2023-09-22 18:50 | disposition home or self-care (01) ==
LOC: EC 16:21
DX: S61.451A Open bite of right hand, initial encounter (principal); Z87.891 Personal history of nicotine dependence; Z23 Encounter for immunization; W55.81XA Bitten by other mammals, initial encounter
CPT/HCPCS: 73130; 90715; 99283; 90471; 96372 ×2; 12001; J2270; J2001; J1885